=== PATIENT | female | born 1950 | race Caucasian/White ===

== ENCOUNTER → 2016-09-06 | Day surgery (SDC) | payer MEDICARE ==
--- NOTE | 2016-09-07 11:20 | PATH ---
Surgical Pathology Report Patient Name: KLARISSA BENTLEY [facility]. Rec. #: [id number] /Age/Gender: 1950 (Age: 66) / F Account: [id number] Location: [facility] Taken: 09/06/2016 Received: 09/06/2016 Reported: 09/07/2016 Physicians: Sachi Smith M.D. Specimen(s) Received LEFT BREAST CORE BIOPSY 9:00 6CM FN Clinical History Probably benign Final Diagnosis LEFT BREAST, 9:00 6 CM FROM NIPPLE, NEEDLE CORE BIOPSY: SCLEROSED FIBROADENOMA. Electronically Signed Piter Gu M.D. Gross Description Received in formalin labeled "left breast biopsy 9:00, 6 cmfn," is a 1.8 x 1.7 x 0.3 cm aggregate of multiple higgin[place]am-yellow, irregular to cylindrical portions of fibroadipose tissue. The formalin is filtered and the specimen is entirely submitted in one cassette. Time to formalin fixation: 2 minutes Total formalin fixation time: 8 hours 09/06/2016
== END | disposition home or self-care (01) ==
LOC: FRADUS-SUR 11:39
PROVIDERS: ATTEND Physician Assistant Surgical
PROC: 0HBU3ZX Excision of Left Breast, Percutaneous Approach, Diagnostic (ICD-10-PCS; principal; 2016-09-06)
DX: N63 Unspecified lump in breast (principal); D24.2 Benign neoplasm of left breast
CPT/HCPCS: 19083; 87899; 88305-TC; A4648; G0206-TC

== ENCOUNTER 2024-02-24 04:56 | Day surgery (SDC) | payer MEDICARE ==
[2024-02-23 08:58] VITALS: BMI 28.9
[2024-02-24] MEDS ORDERED: BUPIVACAINE HCL/PF 0.5% (5MG/ML) 10 ML VIAL ONE (07:11)
[2024-02-24] MEDS ORDERED: PROPOFOL 40 ML ONE (07:59)
[2024-02-24] MEDS ORDERED: MIDAZOLAM HCL 2 MG/2 ML SINGLE DOSE VIAL ONE (08:00)
[2024-02-24] MEDS ORDERED: ROCURONIUM BROMIDE 50 MG/5 ML SYRINGE ONE (08:00)
[2024-02-24] MEDS: ceFAZolin SODIUM 1 GM VIAL IVPB ONE ×2 (08:18)
[2024-02-24] MEDS ORDERED: ONDANSETRON 4 MG/2 ML VIAL ONE (08:25)
[2024-02-24] MEDS ORDERED: ceFAZolin SODIUM 1 GM VIAL ONE (08:25)
[2024-02-24] MEDS ORDERED: DEXAMETHASONE SOD PHOSPHATE 4 MG/1 ML VIAL ONE (08:25)
[2024-02-24] MEDS: BUPIVACAINE HCL/PF 0.5% (5 MG/ML) 30 ML VIAL IJ ONE ×3 (08:48)
[2024-02-24] MEDS ORDERED: SUGAMMADEX SODIUM 200 MG/2 ML VIAL ONE (10:44)
[2024-02-24] MEDS ORDERED: KETOROLAC TROMETHAMINE 30 MG/1 ML VIAL ONE (10:44)
[2024-02-24] MEDS ORDERED: ACETAMINOPHEN INJECTION 100 ML IVPB ONE (11:03)
[2024-02-24] MEDS: ACETAMINOPHEN 1000 MG/100 ML BAG IVPB ONE (11:10)
[2024-02-24] MEDS ORDERED: ONDANSETRON 4 MG/2 ML VIAL IVPUSH PRN (12:11)
[2024-02-24] MEDS ORDERED: oxyCODONE HCL 5 MG TABLET PO PRN (12:11)
[2024-02-24] MEDS ORDERED: LACTATED RINGERS SOLUTION 1,000 ML IV SCH (12:15)
[2024-02-24 12:40] VITALS: TEMP 97.3
[2024-02-24 16:13] VITALS: BP 151/60; PULSE 75; RESP 18
== END 2024-02-24 15:10 | disposition home or self-care (01) ==
LOC: JASU-SURG 04:56
PROVIDERS: ATTEND Surgery
PROC: 8E0W4CZ Robotic Assisted Procedure of Trunk Region, Percutaneous Endoscopic Approach (ICD-10-PCS; 2024-02-24)
PROC: 0YU74JZ Supplement Right Femoral Region with Synthetic Substitute, Percutaneous Endoscopic Approach (ICD-10-PCS; 2024-02-24)
PROC: 0YUA4JZ Supplement Bilateral Inguinal Region with Synthetic Substitute, Percutaneous Endoscopic Approach (ICD-10-PCS; principal; 2024-02-24 08:00)
DX: K40.90 Unilateral inguinal hernia, without obstruction or gangrene, not specified as recurrent (principal); K41.90 Unilateral femoral hernia, without obstruction or gangrene, not specified as recurrent
CPT/HCPCS: 49650; S2900; 82962; 86850; 86900; 86901; 94760; C1781; J0131